=== PATIENT | female | born 2000 | race African-American/Black ===

== ENCOUNTER 2020-12-01 08:38 | Emergency (ER) | payer MEDICAID ==
[~2020-12-01] VITALS: Ht 167.6 cm; Wt 57.0 kg
[2020-12-01 08:50] VITALS: BP 119/74
[2020-12-01] MEDS ORDERED: TOPUD PO (09:56)
[2020-12-01] MEDS ORDERED: AMOX-424 PO (09:56)
[2020-12-01] MEDS ORDERED: OFLO5DRO4 EACH EAR (09:56)
[2020-12-01] MEDS ORDERED: ACETAMINOPHEN 325MG TABLET PO ONE (10:00)
== END 2020-12-01 10:26 | disposition home or self-care (01) ==
LOC: ER 08:38
DX: H60.93 Unspecified otitis externa, bilateral (principal); J02.9 Acute pharyngitis, unspecified
CPT/HCPCS: 99282

== ENCOUNTER 2024-03-30 12:49 | Emergency (ER) | payer BC, MEDICAID ==
[~2024-03-30] VITALS: Ht 167.6 cm; Wt 53.9 kg
[~2024-03-30 12:49] MED LIST: AMOX-424 PO; OFLO5DRO4 EACH EAR; TOPUD PO
[2024-03-30 12:53] VITALS: O2SAT 100
[2024-03-30 12:54] VITALS: TEMP 98.8; O2SAT 99
[2024-03-30 14:18] VITALS: BP 108/60; PULSE 77; RESP 16
[2024-03-30] MEDS: IBUPROFEN 400MG TABLET PO ONE (14:18)
[2024-03-30] MEDS ORDERED: METH-653 MT (15:49)
== END 2024-03-30 16:32 | disposition home or self-care (01) ==
LOC: ER 12:49
DX: S09.90XA Unspecified injury of head, initial encounter (principal); M54.50 Low back pain, unspecified; M54.2 Cervicalgia; M79.632 Pain in left forearm; Z91.018 Allergy to other foods; Z88.1 Allergy status to other antibiotic agents; V43.52XA Car driver injured in collision with other type car in traffic accident, initial encounter; Y93.89 Activity, other specified; Y92.89 Other specified places as the place of occurrence of the external cause; Y99.8 Other external cause status
CPT/HCPCS: 70486; 72100; 73090; 81025; 99291

== ENCOUNTER → 2024-05-03 | Outpatient (CLI) | payer SELFPAY ==
[~2024-05-03] MED LIST changes: +METH-653 MT
[2024-05-03 12:55] LABS: CLARITY URINE CLEAR (CLEAR); COLOR URINE YELLOW (YELLOW); GLUCOSE URINE NEGATIVE (NEGATIVE); KETONES URINE NEGATIVE (NEGATIVE); LEUKOCYTE ESTERASE URINE 2+ (NEGATIVE); NITRITE URINE NEGATIVE (NEGATIVE); OCCULT BLOOD URINE NEGATIVE (NEGATIVE); PROTEIN URINE NEGATIVE (NEGATIVE); SPECIFIC GRAVITY URINE 1.016 (1.005-1.030); UROBILINOGEN URINE 0.2 E.U./dL (0.2-1.0)
[2024-05-03 12:57] LABS: BASOPHILS % 1.3 % (0.0-2.0); DIFFERENTIAL COMMENT 0; HEMATOCRIT. 42.5 % (36.0-48.0); HEMOGLOBIN. 14.4 g/dL (12.0-16.0); MEAN CORPUSCULAR HEMOGLOBIN 30.4 pg (28.0-32.0); MEAN CORPUSCULAR HGB CONC 33.9 g/dL (31.0-37.0); MEAN CORPUSCULAR VOLUME 89.6 fL (81.0-99.0); MEAN PLATELET VOLUME 9.1 fl (7.4-10.4); NEUTROPHILS % 43.7 % (40.0-76.0); PLATELET 297 x1000/uL (130-400); RED BLOOD CELL COUNT 4.74 mill/uL (4.2-5.4); RED CELL DISTRIBUTION WIDTH 14.3 % (11.6-14.6)
[2024-05-03 13:00] LABS: CARBON DIOXIDE 29 mEq/L (21-32); CHLORIDE 107 mEq/L (98-107); SODIUM 142 mEq/L (136-145)
[2024-05-03 13:01] LABS: CALCIUM 9.9 mg/dL (8.7-10.4)
[2024-05-03 13:05] LABS: CREATININE 0.8 mg/dL (0.6-1.0); GLUCOSE 68 mg/dL (70-105); IRON 85 ug/dL (50-170)
[2024-05-03 13:06] LABS: LDL CHOLESTEROL 65 mg/dL (5-100); TRIGLYCERIDE 86 mg/dL (0-150); UREA NITROGEN BLOOD 12 mg/dL (9-23)
[2024-05-03 13:07] LABS: ALANINE AMINOTRANSFERASE 9 IU/L (10-49); ALBUMIN 4.5 g/dL (3.2-4.8); ASPARTATE AMINOTRANSFERASE 11 IU/L (<34); CHOLESTEROL 151 mg/dL (<200); HDL CHOLESTEROL 54 mg/dL (>65)
[2024-05-03 13:08] LABS: BILIRUBIN TOTAL 0.9 mg/dL (0.1-1.0); PROTEIN TOTAL 7.7 g/dL (6.0-8.3); TOTAL IRON BINDING CAPACITY 274 ug/dl (250-425)
[2024-05-03 13:10] LABS: FERRITIN 32 ng/mL (10-291); T4 FREE 1.05 ng/dL (0.89-1.76); THYROID STIMULATING HORMONE 0.97 uIU/mL (0.55-4.78)
[2024-05-03 13:11] LABS: VITAMIN B12 SERUM 1337 pg/mL (211-911)
[2024-05-03 13:33] LABS: BACTERIA URINE 4+; SQUAMOUS EPITHELIAL CELL URINE 3+ /lpf (RARE/1+); YEAST URINE NONE SEEN
[2024-05-03 13:45] LABS: B-HCG QUANTITATIVE < 1 mIU/mL (<3)
[2024-05-04 09:38] LABS: VITAMIN D 25-OH 8.5 ng/mL (30.0-100.0)
[2024-05-06 04:07] LABS: CHLAMYDIA TRACHOMATIS NAA Negative (Negative); NEISSERIA GONORRHOEAE NAA Negative (Negative)
== END | disposition home or self-care (01) ==
LOC: LAB 11:37
PROVIDERS: ATTEND Internal Medicine Geriatric Medicine
DX: Z00.01 Encounter for general adult medical examination with abnormal findings (principal); Z88.8 Allergy status to other drugs, medicaments and biological substances
CPT/HCPCS: 36415; 80053; 80061; 81003; 82306; 82607; 82728; 83036; 83540; 83550; 84439; 84443; 84702; 85025; 86592; 87491; 87591

== ENCOUNTER → 2024-05-11 | Outpatient (CLI) | payer BC ==
[~2024-05-11] MED LIST changes: +GADOTERATE MEGLUMINE 5 MMOL/10 ML VIAL IV ONE
== END | disposition home or self-care (01) ==
LOC: MRI 12:40
PROVIDERS: ATTEND Internal Medicine Geriatric Medicine
DX: R60.9 Edema, unspecified (principal)
CPT/HCPCS: 70544; 70543; A9577

== ENCOUNTER → 2024-11-17 | Outpatient (CLI) | payer BC ==
[~2024-11-17] MED LIST changes: +ALBU18HF2 IH; +BIRTH CONTROL PO; -GADOTERATE MEGLUMINE 5 MMOL/10 ML VIAL IV ONE; +OXYC-100 MT
[2024-11-17 15:23] LABS: BASOPHILS % 1.1 % (0.0-2.0); EOSINOPHILS % 7.2 % (0.0-5.0); HEMATOCRIT. 40.2 % (36.0-48.0); HEMOGLOBIN. 13.8 g/dL (12.0-16.0); LYMPHOCYTES % 34.7 % (20.0-50.0); MEAN PLATELET VOLUME 8.6 fl (7.4-10.4); MONOCYTES % 8.6 % (2.0-8.0); NEUTROPHILS % 48.4 % (40.0-76.0); PLATELET 286 x1000/uL (130-400); RED BLOOD CELL COUNT 4.50 mill/uL (4.2-5.4); RED CELL DISTRIBUTION WIDTH 13.6 % (11.6-14.6)
[2024-11-17 15:29] LABS: CLARITY URINE CLOUDY (CLEAR); COLOR URINE YELLOW (YELLOW); GLUCOSE URINE NEGATIVE (NEGATIVE); KETONES URINE NEGATIVE (NEGATIVE); LEUKOCYTE ESTERASE URINE 2+ (NEGATIVE); NITRITE URINE NEGATIVE (NEGATIVE); OCCULT BLOOD URINE NEGATIVE (NEGATIVE); PH URINE 5.5 (4.5-8.0); PROTEIN URINE NEGATIVE (NEGATIVE); SPECIFIC GRAVITY URINE 1.018 (1.005-1.030); UROBILINOGEN URINE 0.2 E.U./dL (0.2-1.0)
[2024-11-17 15:35] LABS: HCG SCREEN NEGATIVE
[2024-11-17 15:38] LABS: CREATININE 0.9 mg/dL (0.6-1.0)
[2024-11-17 15:39] LABS: TRIGLYCERIDE 128 mg/dL (0-150); UREA NITROGEN BLOOD 9 mg/dL (9-23)
[2024-11-17 15:40] LABS: ASPARTATE AMINOTRANSFERASE 15 IU/L (<34); LDL CHOLESTEROL 58 mg/dL (5-100)
[2024-11-17 15:41] LABS: BILIRUBIN TOTAL 1.4 mg/dL (0.1-1.0); FOLIC ACID (FOLATE) SERUM 18.09 ng/mL (>5.38); PROTEIN TOTAL 7.3 g/dL (6.0-8.3)
[2024-11-17 15:42] LABS: T4 FREE 1.21 ng/dL (0.89-1.76)
[2024-11-17 16:14] LABS: HEPATITIS A AB IGM NEGATIVE (Negative)
[2024-11-17 16:15] LABS: HEPATITIS B CORE AB IGM NEGATIVE (Negative)
[2024-11-17 16:40] LABS: HEPATITIS C AB NON REACTIVE (Neg) (Negative)
[2024-11-17 18:12] LABS: BACTERIA URINE 3+; RBC URINE 0-2 /hpf (0-2); SQUAMOUS EPITHELIAL CELL URINE 1+ /lpf (RARE/1+)
== END | disposition home or self-care (01) ==
LOC: RAD 14:26
PROVIDERS: ATTEND Internal Medicine Geriatric Medicine
DX: Z01.818 Encounter for other preprocedural examination (principal); J45.30 Mild persistent asthma, uncomplicated; E16.2 Hypoglycemia, unspecified; Q38.0 Congenital malformations of lips, not elsewhere classified
CPT/HCPCS: 36415; 71046; 80053; 80061; 80074; 81003; 82728; 82746; 83036; 83540; 83550; 84439; 84443; 84703; 85025; 86705; 86709; 87340

== ENCOUNTER → 2024-11-23 | Outpatient (CLI) | payer BC ==
[~2024-11-23] MED LIST changes: +FAMOTIDINE 20MG/2ML VIAL IV ONE
== END | disposition home or self-care (01) ==
LOC: PF 11:12
PROVIDERS: ATTEND Internal Medicine Geriatric Medicine
DX: Z01.818 Encounter for other preprocedural examination (principal); J45.909 Unspecified asthma, uncomplicated; Z20.822 Contact with and (suspected) exposure to COVID-19
CPT/HCPCS: 87426; 94060; 94727; 94729; J1308

== ENCOUNTER → 2024-11-24 | Day surgery (SDC) | payer BC ==
[~2024-11-24] VITALS: Ht 167.6 cm; Wt 56.2 kg
[~2024-11-24] MED LIST changes: -AMOX-424 PO; +BACITRACIN 14GM TUBE TOP ONE; +CLINDAMYCIN 900MG PREMIX 50 ML IV ONE; -FAMOTIDINE 20MG/2ML VIAL IV ONE; +FAMOTIDINE 20MG/2ML VIAL IV PRN; +FENTANYL CITRATE/PF 50MCG/ML 2ML VIAL ONE; +FENTANYL CITRATE/PF 50MCG/ML 5ML VIAL ONE; +HYDRALAZINE 20MG/ML VIAL IV PRN; +LABETALOL 5MG/ML 4ML INJ IV PRN; +LACTATED RINGERS 1,000 ML IV SCH; +LIDOCAINE HCL 1% 20ML VIAL ONE; +LIDOCAINE HCL/EPINEPHRINE 1%-EPI 1:100,000 20ML VIAL ONE; +LORAZEPAM 2MG/ML UD SYRINGE IV ONE; +MEPERIDINE HCL/PF 25MG/ML CPJ IV PRN; -METH-653 MT; +MIDAZOLAM HCL 2 MG/2 ML VIAL ONE; -OFLO5DRO4 EACH EAR; +ONDANSETRON HCL 4MG/2ML INJ IV PRN; +PHENYLEPHRINE HCL 1% 30ML NASAL SPRAY ONE; +PROPOFOL 200MG/20ML VIAL IV ONE; +ROCURONIUM BROMIDE 10MG/ML VIAL 5ML IV ONE; -TOPUD PO
[2024-11-24 06:07] LABS: UCG KIT EXPIRATION DATE 01/03/2027; UCG KIT LOT# 958452; UCG SCREEN NEGATIVE
[2024-11-24] MEDS: HYDROMORPHONE HCL/PF 1MG/ML INJ IV PRN (11:42)
[2024-11-24] MEDS: ACETAMINOPHEN 1,000MG/100ML PREMIX IV PRN (11:43)
[2024-11-24 11:49] VITALS: BP 116/69; PULSE 88; RESP 15
== END | disposition home or self-care (01) ==
LOC: OR 05:40
PROVIDERS: ATTEND Surgery
DX: Q38.0 Congenital malformations of lips, not elsewhere classified (principal); Z79.899 Other long term (current) drug therapy; Z98.890 Other specified postprocedural states
CPT/HCPCS: 40654; 81025; J3010 ×2; J3490 ×2; J2004; J2003; J2250; J2704; J1171; J0131